=== PATIENT | female | born 1975 | race Caucasian/White ===

== ENCOUNTER → 2017-11-29 | Outpatient (CLI) | payer BC, OTHER | LOC: RAD 09:40 | DX: Z12.31 Encounter for screening mammogram for malignant neoplasm of breast (principal) ==

== ENCOUNTER → 2018-10-28 | Outpatient (CLI) | payer BC, OTHER | LOC: NUC 10-02 13:19 | DX: N91.2 Amenorrhea, unspecified (principal); Z78.0 Asymptomatic menopausal state; Z90.710 Acquired absence of both cervix and uterus ==

== ENCOUNTER 2019-06-10 11:06 | Inpatient (IN) | payer BC, OTHER ==
[2019-06-02 10:38] LABS: BASOPHILS 1.1 % (0.0-2.0); EOSINOPHILS 3.4 % (0.0-3.0); HEMATOCRIT 38.6 % (37.0-47.0); HEMOGLOBIN 12.5 gm/dL (12.0-15.0); LYMPHOCYTES 26.8 % (24.0-44.0); MCH 26.3 pg (26.0-34.0); MCHC 32.5 g/dL (28.0-37.0); MCV 81.1 fL (80.0-100.0); MONOCYTES 9.8 % (1.0-8.0); PLATELET COUNT 274 thou/uL (150-400); POLYS 58.9 % (36.0-66.0); RBC 4.76 mil/uL (4.20-5.00); URINE BILIRUBIN NEGATIVE (Negative); URINE BLOOD TRACE (Negative); URINE CLARITY CLEAR; URINE COLOR YELLOW; URINE GLUCOSE-RANDOM* NEGATIVE (Negative); URINE KETONES NEGATIVE (Negative); URINE LEUKOCYTES-REFLEX TRACE (Negative); URINE NITRITE-REFLEX NEGATIVE (Negative); URINE PROTEIN (DIPSTICK) NEGATIVE (Negative); URINE SPECIFIC GRAVITY >= 1.030 (1.005-1.035); URINE UROBILINOGEN 0.2 E.U./dl (0.2-1.0); WBC 5.1 thou/uL (4.0-11.0)
[2019-06-02 10:48] LABS: ALBUMIN 3.6 g/dL (3.4-5.0); CALCIUM 9.5 mg/dL (8.5-10.1); CREATININE 0.8 mg/dL (0.6-1.0); POTASSIUM 3.9 mmol/L (3.5-5.1); TOTAL BILIRUBIN 0.3 mg/dL (<0.1-1.0); TOTAL PROTEIN 7.3 g/dL (6.4-8.2)
[2019-06-02 11:43] LABS: APTT 29.1 Seconds (24.5-32.8)
--- NOTE | 2019-06-05 12:55 | EKG ---
[address] [address] [place] [address] ELECTROCARDIOGRAM REPORT Name: KIRITBERNARD Room #: [facility]..#: [id number] Admission: Attend Phys: Farhat Marquez MD Discharge: Date of : 79 Report #: [id number] THIS REPORT FOR: //name// [facility] Test Date: 2019-06-02 Test Time: 10:31:19 Pat Name: BERNARD BETH Department: Room: Gender: F Spiral Runner: ronaldo : 1975 Requested By: Farhat Marquez Order Number: [id number] MD: Yusuf Sidhu Measurements Intervals [place] Rate: 54 P: 32 [place]: 156 QRS: 27 QRSD: 95 T: -10 QT: 424 QTc: 402 Interpretive Statements Sinus arrhythmia Borderline low voltage, extremity leads Compared to ECG 09/03/2008 16:04:07 Sinus rhythm no longer present ST (T wave) deviation no longer present Possible ischemia no longer present Electronically Signed On 06-05-2019 12:55:10 GRADUATION COACH by Yusuf Sidhu [email or web address] <ELECTRONICALLY SIGNED> By: Yusuf Sidhu MD 06/05/19 1255 1031 1031 Yusuf Sidhu MD /REYNA
[~2019-06-10] VITALS: Ht 165.1 cm; Wt 109.3 kg
--- NOTE | ~2019-06-10 | O ---
[facility] [place] [address] [address] OPERATIVE REPORT Name: BERNARD BETH Room #: 212-P ADM IN M.R.#: [id number] Admission: 06/10/19 Attend Phys: Farhat Marquez MD Discharge: Date of : 79 Report #: [id number] THIS REPORT FOR: //name// CC: [facility]hat [facility] DATE OF SERVICE: 06/10/2019 PREOPERATIVE DIAGNOSIS: Mediastinal adenopathy. POSTOPERATIVE DIAGNOSIS: Mediastinal adenopathy. OPERATION: Bronchoscopy and mediastinoscopy. SURGEON: Farhat Marquez MD ANESTHESIA: General. INDICATIONS: The patient is a 43-year-old with mediastinal adenopathy. The patient was referred by Dr. Durham for mediastinal lymph node biopsy. FINDINGS AND TECHNIQUE: After general anesthesia was established, flexible diagnostic bronchoscopy was performed. The bronchial mucosa was abnormal, had a grayish appearance and air flow dividers particularly on the right, it appeared to be blunted. There were no focal lesions other than the patchy, almost cobblestone nature of the ng appearance to the mucosa. PROCEDURE IN DETAIL: The patient was positioned and prepped and draped for mediastinoscopy. A low collar incision was made, pretracheal space was entered, and the mediastinoscope was passed. Enlarged lymph nodes, particularly in the 4R region were identified. These were submitted for culture and also for permanent pathology. These had a firm granular appearance and samples were sent for permanent pathology and flow cytometry. Hemostasis was ascertained and then the scope was removed and the incision was closed in layers. The patient tolerated the procedure well and was taken to the recovery area in good condition. All counts reported as correct. By: 1039 1057 Farhat Marquez MD /nt
[~2019-06-10 11:06] MED LIST: PREDNISONE 10 M10 MG PO
[2019-06-10 12:09] VITALS: BP 123/70
[2019-06-10 20:49] VITALS: BP 93/50
[2019-06-11 00:28] VITALS: BP 99/53
--- NOTE | 2019-06-11 05:33 | NUR ---
PT ADMITTED TO ROOM 212 CCU PT POST BRONCHOSCOPY AND MEDIASTINOS, DRESSING WITH PINK DRAINAGE NOTED, DENIES NEED FOR PAIN MEDS STATES SHE ID JUST STIFF AND SORE, EATING REGULAR MEAL TRAY FOR DINNER WITHOUT DIFFICULTY, RT DC'D O2 NOW SATING 96%ON RA, RESTING QUIETLY IN ROOM, VSS, WILL CON'T O MONITOR PER PPOC.
[2019-06-11 05:41] VITALS: BP 103/48
[2019-06-11 06:06] LABS: HEMATOCRIT 38.7 % (37.0-47.0); HEMOGLOBIN 12.5 gm/dL (12.0-15.0); MCH 26.4 pg (26.0-34.0); MCHC 32.2 g/dL (28.0-37.0); MCV 81.9 fL (80.0-100.0); RBC 4.72 mil/uL (4.20-5.00); RDW 16.2 % (10.5-14.5); WBC 11.5 thou/uL (4.0-11.0)
[2019-06-11 06:13] LABS: CALCIUM 9.8 mg/dL (8.5-10.1); CREATININE 0.9 mg/dL (0.6-1.0); POTASSIUM 4.5 mmol/L (3.5-5.1)
[2019-06-11 09:00] VITALS: BP 102/86
[2019-06-11 11:51] VITALS: BP 102/86
--- NOTE | 2019-06-11 12:55 | NUR ---
PT ALERT/ORIENTED. AMBULATING AROUND ROOM INDEPENDENTLY. VITAL SIGNS STABLE. SINUS RHYTHM ON THE MONITOR. VOICES NO NEEDS OR CONCERNS. LAST DOSE OF IV ABX GIVEN. IV DISCONTINUED. TELE MONITOR OFF. PATIENT AWARE OF DISCHARGE INSTRUCTIONS AND FOLLOW UP APPOINTMENTS.
--- NOTE | 2019-06-12 07:53 | NUR ---
ORDERS RECEIVED FOR EVAL AND TREAT HOWEVER Pt DISCHARGED FROM HOSPITAL PRIOR TO BEING SEEN
--- NOTE | 2019-06-13 13:07 | PATH ---
[facility] [address] [place] [address] PATHOLOGY RPT PROCEDURE Name: BERNARD CAUSEY Room #: 212-P DIS IN M.R.#: [id number] Admission: 06/10/19 Date of : 79 Discharge: 06/11/19 Report #: [id number] Path Case #: [id number] [facility] Accession Number: [id number] . 01 Material submitted: . lymph node - MULTIPLE R-4 LYMPH NODES . 01 Clinician provided ICD-10: R59.9 . 01 Clinical history: . Generalized enlarged lymph nodes History: Bronchoscopy . 02 Diagnosis: Lymph nodes, R4, biopsy: - Lymphoid tissue with multiple non-caseating granulomata. - No evidence of acid-fast bacilli on Aydee stain. - No evidence of fungal organisms on GMS fungal stain. . (Please see comment) . (NINA:elvia; 06/12/2019) QLM 06/12/2019 1044 Local . 02 Comment: The findings in this case could be consistent with sarcoidosis in the appropriate clinical setting. . (SKM:mmolga; 06/12/2019) . 02 Electronically signed: . George Jay MD, Pathologist NPI- [id number] . 01 Gross description: . Part A is received fresh and labeled "multiple R4 lymph nodes" and it consists of a collection of yellow-hernandez tissue fragments which aggregate to 2 x 1 x 0.5 cm. A small portion of the specimen is finely minced and submitted in RPMI for flow cytometry studies. The remainder of the specimen is all submitted in block A1. Also note that Dr. Marquez also sent a small portion of the specimen directly to Microbiology for culture studies. (SKM/db; 06/10/2019) . Also received in RPMI solution labeled "Bernard Causey, multiple R4 lymph nodes," is an aggregate of light-hernadnez tissue measuring approximately [facility] [address] [place] [address] PATHOLOGY RPT PROCEDURE Name: BERNARD CAUSEY Room #: 212-P DIS IN M.R.#: [id number] Admission: 06/10/19 Date of : 79 Discharge: 06/11/19 Report #: [id number] Path Case #: [id number] 0.8 x 0.6 x 0.6 cm. The specimen is forwarded to flow cytometry for further testing. (TSD; 06/10/2019) TOB/TOB 06/12/2019 1148 Local . 02 Pathologist provided ICD-10: R59.9 . 02 CPT . 926078, [id number], 634571 Specimen Comment: A courtesy copy of this report has been sent to [phone], [phone] Specimen Comment: [phone] Specimen Comment: Report sent to / DR ROCK Performed at: [address] [facility], [place], [place] [id number] MD Luis Reza MD Phone: [phone] Performed at: [address] [facility] [id number] MD Charisma Sapp MD Phone: [phone]
== END 2019-06-11 13:27 | disposition home or self-care (01) | DRG 804 ==
LOC: OR 11:06 → TBA 11:15 → OR 18:13 → 2N 18:14
PROVIDERS: Physician Assistant; ADMIT Surgery Vascular Surgery
PROC: 07B74ZX Excision of Thorax Lymphatic, Percutaneous Endoscopic Approach, Diagnostic (ICD-10-PCS; principal; 2019-06-10)
PROC: 0BJ08ZZ Inspection of Tracheobronchial Tree, Via Natural or Artificial Opening Endoscopic (ICD-10-PCS; 2019-06-10)
DX: R59.0 Localized enlarged lymph nodes (principal); Z88.0 Allergy status to penicillin
CPT/HCPCS: 10081; 50010; 50101; 50386; 50403; 50607; 50649; 51301; 54118; 56524; 62110; 62900; 70005